=== PATIENT | female | born 1980 | race African-American/Black ===

== ENCOUNTER 2021-03-15 05:12 | Inpatient (IN) | payer OTHER ==
[2021-03-13 15:57] VITALS: BMI 43.8
[2021-03-15] MEDS ORDERED: BUPIVACAINE LIPOSOME/PF (EXPAREL) 266 MG/20 ML VIAL ONE (08:57)
[2021-03-15] MEDS ORDERED: MIDAZOLAM HCL 2 MG/2 ML SINGLE DOSE VIAL ONE ×3 (08:59→10:16)
[2021-03-15] MEDS ORDERED: CEFAZOLIN 2 GM in DEXTROSE 5%-WATER - 100 ML IVPB ONE (09:00)
[2021-03-15] MEDS ORDERED: ceFAZolin SODIUM 1 GM VIAL ONE ×3 (09:37→17:16)
[2021-03-15] MEDS ORDERED: HEPARIN NA (PORCINE) 5,000 UNITS/ML 1ML VIAL ONE (10:08)
[2021-03-15] MEDS ORDERED: fentaNYL CITRATE 250 MCG/5 ML VIAL ONE (10:16)
[2021-03-15] MEDS ORDERED: PROPOFOL 20 ML ONE ×2 (10:16)
[2021-03-15] MEDS ORDERED: ROCURONIUM BROMIDE 50 MG/5 ML SYRINGE ONE ×2 (10:18→10:59)
[2021-03-15] MEDS ORDERED: ceFAZolin SODIUM 1 GM VIAL IVPB ONE (10:45)
[2021-03-15] MEDS ORDERED: ONDANSETRON 4 MG/2 ML VIAL IVPUSH PRN ×3 (10:52→13:28)
[2021-03-15] MEDS ORDERED: HYDROmorphone HCl 2 MG/ML VIAL ONE (10:59)
[2021-03-15] MEDS ORDERED: LIDOCAINE HCL/PF 2% SDV 5ML VIAL ONE (11:00)
[2021-03-15] MEDS ORDERED: ACETAMINOPHEN 1000 MG/100 ML VIAL IVPB SCH ×2 (11:00→13:45)
[2021-03-15] MEDS ORDERED: DEXAMETHASONE SOD PHOSPHATE 4 MG/1 ML VIAL ONE (11:00)
[2021-03-15] MEDS ORDERED: GLYCOPYRROLATE 0.2 MG/1 ML VIAL ONE (12:40)
[2021-03-15] MEDS ORDERED: NEOSTIGMINE METHYLSULFATE 0.5 MG/ML - 10 ML MDV ONE ×2 (12:40→12:54)
[2021-03-15] MEDS ORDERED: KETOROLAC TROMETHAMINE 30 MG/1 ML VIAL ONE (12:40)
[2021-03-15] MEDS ORDERED: ACETAMINOPHEN 325 MG TABLET (FP) PO PRN (13:28)
[2021-03-15] MEDS ORDERED: BISACODYL 5 MG TABLET.DR (FP) PO PRN (13:28)
[2021-03-15] MEDS ORDERED: IBUPROFEN 800 MG/8 ML IJ IVPB PRN ×2 (13:28→19:59)
[2021-03-15] MEDS ORDERED: DOCUSATE SODIUM 100 MG CAPSULE (FP) PO PRN (13:28)
[2021-03-15] MEDS ORDERED: oxyCODONE HCL 5 MG TABLET PO PRN ×2 (13:28)
[2021-03-15] MEDS ORDERED: HYDROmorphone *PCA* 10MG/50ML DISP.SYRIN ONE (13:32)
[2021-03-15] MEDS ORDERED: HYDROmorphone *PCA* 10MG/50ML DISP.SYRIN PCA SCH (13:45)
[2021-03-15] MEDS ORDERED: IBUPROFEN 800 MG/8 ML IJ IVPB SCH (14:00)
[2021-03-15] MEDS ORDERED: ACETAMINOPHEN INJECTION 100 ML IVPB ONE (14:19)
[2021-03-15] MEDS ORDERED: LABETALOL HCL 5 MG/1 ML (100MG/20 ML VIAL) IVPUSH ONE (15:51)
[2021-03-15] MEDS: LACTATED RINGERS SOLUTION 1,000 ML IV SCH ×2 (16:10→23:55)
[2021-03-15] MEDS ORDERED: DEXTROSE 5%-WATER - 50 ML IVPB ONE (17:17)
[2021-03-15] MEDS: CEFAZOLIN 1 GM in DEXTROSE 5%-WATER - 50 ML IVPB SCH (17:23)
[2021-03-15] MEDS ORDERED: ACETAMINOPHEN 1000 MG/100 ML VIAL IVPB PRN (20:01)
[2021-03-15] MEDS ORDERED: PCA PUMP NR ONE (20:56)
[2021-03-15] MEDS: SIMETHICONE 80 MG TAB.CHEW (FP) PO PRN (21:44)
[2021-03-16] MEDS ORDERED: ceFAZolin SODIUM 1 GM VIAL ONE ×2 (01:20→09:28)
[2021-03-16] MEDS ORDERED: DEXTROSE 5%-WATER - 50 ML IVPB ONE ×2 (01:20→09:28)
[2021-03-16] MEDS: CEFAZOLIN 1 GM in DEXTROSE 5%-WATER - 50 ML IVPB SCH ×2 (01:21→09:38)
[2021-03-16] MEDS ORDERED: oxyCODONE HCL 5 MG TABLET PO PRN (08:21)
[2021-03-16 08:41] LABS: HEMATOCRIT 31.8 % (32.4-45.2); HEMOGLOBIN 9.6 GM/dL (10.7-15.3); MCH 20.9 pg (25.7-33.7); MCHC 30.1 g/dl (32.0-36.0); MEAN CELL VOLUME 69.4 fl (80-96); MEAN PLT VOLUME 8.2 fl (7.5-11.1); PLATELET COUNT 413 10^3/uL (134-434); RBC 4.58 M/mm3 (3.60-5.2); RDW 20.5 % (11.6-15.6); WHITE BLOOD COUNT 5.8 K/mm3 (4.0-10.0)
[2021-03-16] MEDS: oxyCODONE HCL 5 MG TABLET PO PRN ×2 (08:42→16:56)
[2021-03-16] MEDS: SIMETHICONE 80 MG TAB.CHEW (FP) PO PRN (09:38)
[2021-03-16] MEDS: LACTATED RINGERS SOLUTION 1,000 ML IV SCH (09:44)
[2021-03-16] MEDS ORDERED: ENOXAPARIN NA (PORCINE) 40 MG/0.4 ML DISP.SYRIN SQ SCH (10:00)
[2021-03-16] MEDS ORDERED: IBUPROFEN 600 MG TABLET (FP) PO PRN (13:28)
[2021-03-16] MEDS ORDERED: LABETALOL HCL 100 MG TABLET (FP) PO ONE (14:00)
[2021-03-16 14:17] VITALS: TEMP 98.5
[2021-03-16 17:53] VITALS: BP 144/76; PULSE 76
== END 2021-03-16 17:51 | disposition home or self-care (01) | DRG 743 ==
LOC: J2C 05:12 → J6S 16:24
PROVIDERS: ADMIT Specialist; ATTEND Specialist
PROC: 0UT70ZZ Resection of Bilateral Fallopian Tubes, Open Approach (ICD-10-PCS; 2021-03-15)
PROC: 0UT90ZZ Resection of Uterus, Open Approach (ICD-10-PCS; principal; 2021-03-15 10:00)
DX: D25.9 Leiomyoma of uterus, unspecified (principal); R10.2 Pelvic and perineal pain; N92.0 Excessive and frequent menstruation with regular cycle
CPT/HCPCS: 36415; 84703; 85027; 86850; 86900; 86901; 93005; 93010; 94760; J0131; J1644